=== PATIENT | male | born 1960 | race Caucasian/White ===

== ENCOUNTER → 2017-02-05 | Day surgery (SDC) | payer OTHER ==
[~2017-02-05] MED LIST: ACETAMINOPHEN 1000 MG/100 ML 100 ML IV ONE; BUPIVACAINE/EPINEPHRINE 0.25% 50 ML VIAL ONE; LIDOCAINE 1%/EPINEPHrine 1:200,000 PF SOLN 30 ML VIAL ONE; MIDAZOLAM HCL 2 MG/2 ML VIAL ONE; NEOMYCIN/POLYMYXIN/BACITRACIN OINT 15 GM TUBE ONE; NEOMYCIN/POLYMYXIN/HYDROCORT OTIC SUSP 10 ML BTL ONE; ONDANSETRON HCL 4 MG/2 ML VIAL IV PUSH ONE; PROPOFOL 500 MG/50 ML BTL IV ONE; SODIUM CHLOR 0.9% 1000 ML BAG IV ONE; ceFAZolin INJ 1,000 MG VIAL ONE
--- NOTE | 2017-02-05 13:10 | TN ---
cc: RENÉ BERANL M.D. DATE OF SURGERY 02/05/2017 PREOPERATIVE DIAGNOSIS Basal cell carcinoma located on the right ear paula POSTOPERATIVE DIAGNOSIS Basal cell carcinoma located on the right ear paula PROCEDURE Wide local excision with a frozen section resulting in a primary defect of 4 x 3 cm. This required a full-thickness graft harvested from the base of the right neck. SURGEON René Bernal MD ANESTHESIA LMA general ESTIMATED BLOOD LOSS Minimal COMPLICATIONS None DRAINS None PROCEDURE He was properly consented, marked, properly anesthetized. The skin was sterilized with Microcyn and sterile draping applied. A total of 20 cc of 1% lidocaine with epinephrine was mixed with 1.25% Marcaine in a 2:1 ratio. After the area was properly prepped and draped and infiltrated, utilizing a 15 blade a wide local excision was done of this lesion with at least 0.3-2.4 cm margin, sent to pathology for frozen section which was read as negative. It to mention this lesion was to close to the conchal cartilage and that had to be taken. With this, the defect is 4 x 3 cm. A template was obtained, transferred into the base of the neck on the right side. This was properly marked and ellipsed out and then thereafter was defatted and as a full-thickness was applied into the recipient site utilizing 4-0 chromic suture and a tie-over dressings including 4-0 silk, Xeroform, bacitracin ointment and cotton balls. The donor site was closed in layers utilizing 2-0 Monocryl suture in the dermis and subcu. Mastisol and Steri-Strips were applied. Overall, the patient tolerated the procedure well. He was awakened and extubated in the operating room, transferred back to the postanesthesia care unit in stable condition. There were no complications appreciated. The patient tolerated the procedure fairly well. MD BERT Ruiz/LIZZIE /12:43 PM /1:02 PM [facility]
== END | disposition home or self-care (01) ==
LOC: ESDC 08:34
PROVIDERS: ATTEND Plastic Surgery
DX: C44.212 Basal cell carcinoma of skin of right ear and external auricular canal (principal)
CPT/HCPCS: 88305; 88331; J0131; J0690; J2250; J2405; J3010; J7030